=== PATIENT | female | born 1940 | race Caucasian/White ===

== ENCOUNTER 2018-01-23 23:00 | Emergency (ER) | payer MEDICARE ==
[~2018-01-23] VITALS: Ht 165.1 cm; Wt 90.7 kg
[~2018-01-23 23:00] MED LIST: ASPI-1169 PO; ATOR10TA PO; FURO10VI IV; METO25TA20 PO
--- NOTE | 2018-01-23 23:00 | NUR ---
PT TO ED DT NOSE BLEEDING SINCE 2199. VSS NAD. WILL CONTINUE TO MONITOR. NOSE CLAMPED
--- NOTE | 2018-01-23 23:01 | NUR ---
ER MD EL AT BEDSIDE
[2018-01-23] MEDS ORDERED: LIDOCAINE 4% PF AMPUL 40 MG/ML AMPUL ONE (23:25)
[2018-01-23] MEDS ORDERED: OXYMETAZOLINE HCL NASAL SPRAY 30 ML BOTTLE NS ONE ×2 (23:25→23:30)
[2018-01-23] MEDS ORDERED: LET SOLN TOPICAL 8 ML UDC TP ONE ×2 (23:29→23:30)
[2018-01-23] MEDS ORDERED: LIDOCAINE SOLN 4% 50 ML BOTTLE TP ONE (23:30)
[2018-01-23] MEDS ORDERED: SILVER NITRATE APPLICATOR 1 EA BOX TOP ONE (23:30)
--- NOTE | 2018-01-23 23:35 | NUR ---
ER MD EL AT BEDSIDE TO CONTROL EPISTAXIS
[2018-01-23] MEDS ORDERED: SILVER NITRATE APPLICATOR 1 EA BOX ONE (23:37)
--- NOTE | 2018-01-24 00:33 | NUR ---
Patient discharged to home in stable condition. Written and verbal after care instructions given. Patient verbalizes understanding of instruction AND RX. PT AMBULATED OUT WITH A STEADY GAIT. VSS. NAD NOTED. NO ACTIVE BLEEDING NOTED.
[2018-01-24 00:35] VITALS: BP 144/70
== END 2018-01-24 00:36 | disposition home or self-care (01) ==
LOC: ER 23:02
DX: R04.0 Epistaxis (principal); J45.909 Unspecified asthma, uncomplicated; I10 Essential (primary) hypertension; Z88.0 Allergy status to penicillin; Z95.4 Presence of other heart-valve replacement; Z79.82 Long term (current) use of aspirin
CPT/HCPCS: 30901; 99284; A4606; J3490; Z7610

== ENCOUNTER 2018-03-06 13:54 | Emergency (ER) | payer MEDICARE ==
[~2018-03-06] VITALS: Ht 165.1 cm; Wt 90.7 kg
[2018-03-06 14:02] VITALS: BP 112/73
--- NOTE | 2018-03-06 15:19 | NUR ---
CALLED JOSE TO EXPEDITE READ OF X-RAY
== END 2018-03-06 15:20 | disposition home or self-care (01) ==
LOC: ER 13:59
DX: S80.12XA Contusion of left lower leg, initial encounter (principal); I10 Essential (primary) hypertension; J45.909 Unspecified asthma, uncomplicated; Z95.4 Presence of other heart-valve replacement; Z79.82 Long term (current) use of aspirin; Z79.899 Other long term (current) drug therapy; Z88.0 Allergy status to penicillin; W01.198A Fall on same level from slipping, tripping and stumbling with subsequent striking against other object, initial encounter; Y93.89 Activity, other specified; Y92.818 Other transport vehicle as the place of occurrence of the external cause; Y99.8 Other external cause status
CPT/HCPCS: 73590-TC; A4606; Z7610

== ENCOUNTER 2018-04-05 15:13 | Emergency (ER) | payer MEDICARE ==
[~2018-04-05] VITALS: Ht 165.1 cm; Wt 95.3 kg
--- NOTE | 2018-04-05 15:20 | NUR ---
ABDOMINAL PAIN X 4 DAYS,DENIES NAUSEA/VOMITING /DIARRHEA, LAST BM THIS AM, NAD NOTED, VSS, RESP EVEN AND UNLABORED, PT WAS PUT ON MONITOR. WAITING FOR MD.
[2018-04-05 15:47] LABS: BASOPHILS # (AUTO) 0.1 /CMM (0.0-0.2); BASOPHILS % (AUTO) 1.3 % (0.0-2.0); EOSINOPHILS % (AUTO) 3.6 % (0.0-6.0); HEMATOCRIT 41 % (33-45); HEMOGLOBIN 13.8 g/dL (11.5-14.8); LYMPHOCYTES # (AUTO) 1.2 /CMM (0.8-4.8); LYMPHOCYTES % (AUTO) 22.8 % (20.0-44.0); MEAN CORPUSCULAR HEMOGLOBIN 29 PG (26.0-33.0); MEAN CORPUSCULAR HGB CONC 33 g/dl (31.0-36.0); MEAN CORPUSCULAR VOLUME 86 fL (82-100); MONOCYTES # (AUTO) 0.6 /CMM (0.1-1.30); MONOCYTES % (AUTO) 10.8 % (2.0-12.0); NEUTROPHILS # (AUTO) 3.1 /CMM (1.8-8.9); NEUTROPHILS % (AUTO) 61.5 % (43.0-81.0); PLATELET COUNT (AUTO) 164 /CMM (150-450); RDW COEFFICIENT OF VARIATION 13.8 (11.5-15.0); WHITE BLOOD COUNT (AUTO) 5.2 K/uL (4.3-11.0)
[2018-04-05 16:00] LABS: APPEARANCE,URINE Clear (CLEAR); BILIRUBIN,URINE Negative (NEGATIVE); BLOOD, URINE Negative Ery/uL (NEGATIVE); COLOR,URINE Yellow (YELLOW); KETONES,URINE Negative (NEGATIVE); LEUKOCYTE ESTERASE ,URINE Trace (NEGATIVE); NITRITE, URINE Negative (NEGATIVE); PROTEIN,URINE Negative (NEGATIVE); UGLUCOSE Negative (NEGATIVE); UROBILINOGEN,URINE 0.2 EU/dL (0.2)
[2018-04-05 16:05] LABS: CALCIUM, SERUM 9.1 mg/dL (8.5-10.1); CARBON DIOXIDE 28 mmol/L (21-32); CHLORIDE 99 mmol/L (98-107); CREATININE 0.6 mg/dL (0.6-1.3); GLUCOSE 111 mg/dL (74-106); POTASSIUM 4.2 mmol/L (3.5-5.1); SODIUM SERUM 132 mmol/L (136-145); UREA NITROGEN, BLOOD 11 mg/dL (7-18)
[2018-04-05 16:10] LABS: ALANINE AMINOTRANSFERASE 25 U/L (12-78); ALKALINE PHOSPHATASE 83 U/L (46-116); ASPARTATE AMINOTRANSFERASE 23 U/L (15-37); BILIRUBIN,DIRECT 0.2 mg/dL (0.0-0.2); BILIRUBIN,TOTAL 0.9 mg/dL (0.2-1.0); LIPASE 164 U/L (73-393); TOTAL PROTEIN, SERUM 7.7 g/dL (6.4-8.2)
[2018-04-05 16:14] LABS: BACTERIA,URINE Moderate /HPF (None Seen); RBC,URINE 0-2 /HPF (0-2); SQUAMOUS EPITHELIAL CELL,UR Few /HPF (None Seen)
[2018-04-05] MEDS ORDERED: LEVOFLOXACIN (500MG) 500 MG TABLET PO ONE (17:00)
[2018-04-05] MEDS ORDERED: HYDROCODONE/APAP 5/325MG 1 EACH TABLET PO ONE (17:00)
--- NOTE | 2018-04-05 17:18 | NUR ---
Patient discharged to home in stable condition. Written and verbal after care instructions given. Patient verbalizes understanding of instruction.
[2018-04-05 17:19] VITALS: BP 148/83
== END 2018-04-05 17:22 | disposition home or self-care (01) ==
LOC: ER 15:19
DX: N39.0 Urinary tract infection, site not specified (principal); I10 Essential (primary) hypertension; J45.909 Unspecified asthma, uncomplicated; Z95.2 Presence of prosthetic heart valve; Z88.0 Allergy status to penicillin; Z79.82 Long term (current) use of aspirin; Z79.899 Other long term (current) drug therapy
CPT/HCPCS: 36415; 74176; 80048; 80076; 81001; 83690; 85025; 87077; 87086; 87186; 99285; A4606; 81000-TC; Z7610

== ENCOUNTER 2018-09-04 20:05 | Emergency (ER) | payer MEDICARE ==
[~2018-09-04] VITALS: Ht 157.5 cm; Wt 90.7 kg
[2018-09-04 20:20] VITALS: BP 154/75
[2018-09-04] MEDS ORDERED: OXYMETAZOLINE HCL NASAL SPRAY 30 ML BOTTLE NS ONE ×2 (20:54→21:00)
== END 2018-09-04 20:52 | disposition home or self-care (01) ==
LOC: ER 20:11
DX: R04.0 Epistaxis (principal); I10 Essential (primary) hypertension; J45.909 Unspecified asthma, uncomplicated; Z95.2 Presence of prosthetic heart valve; Z88.0 Allergy status to penicillin; Z79.82 Long term (current) use of aspirin; V49.9XXA Car occupant (driver) (passenger) injured in unspecified traffic accident, initial encounter; Y93.89 Activity, other specified; Y92.410 Unspecified street and highway as the place of occurrence of the external cause; Y99.8 Other external cause status
CPT/HCPCS: 99281; A4606; Z7502

== ENCOUNTER 2019-07-04 11:55 | Emergency (ER) | payer MEDICARE ==
[~2019-07-04] VITALS: Ht 165.1 cm; Wt 99.8 kg
--- NOTE | 2019-07-04 12:05 | NUR ---
MAGAN FROM HOME C/O NOSEBLEEDING X3 DAYS. PATIENT A/OX4, BREATHING EVEN AND UNLABORED, NO SOB NOTED, NEEDS ATTENDED. WILL CONTINUE TO MONITOR. NOSE CLIP PROVIDED.
[2019-07-04] MEDS ORDERED: PHENYLEPHRINE 0.5% NASAL SPRAY 15 ML BOTTLE NS ONE (12:20)
[2019-07-04] MEDS ORDERED: PHENYLEPHRINE 1% NASAL SPRAY 15 ML BOTTLE NS PRN (12:30)
[2019-07-04 12:56] VITALS: BP 168/88
--- NOTE | 2019-07-04 12:56 | NUR ---
NOSEBLEED STOPPED. Patient discharged to home in stable condition. Written and verbal after care instructions given. Patient verbalizes understanding of instruction.
== END 2019-07-04 12:57 | disposition home or self-care (01) ==
LOC: ER 12:00
DX: R04.0 Epistaxis (principal); I10 Essential (primary) hypertension; J45.909 Unspecified asthma, uncomplicated; Z98.890 Other specified postprocedural states; Z88.0 Allergy status to penicillin; Z79.899 Other long term (current) drug therapy; Z79.82 Long term (current) use of aspirin

== ENCOUNTER 2019-10-13 18:26 | Emergency (ER) | payer MEDICARE ==
[~2019-10-13] VITALS: Ht 165.1 cm; Wt 109.8 kg
--- NOTE | 2019-10-13 19:05 | NUR ---
CALLED RT FOR BREATHING TX
--- NOTE | 2019-10-13 19:10 | NUR ---
PT CAME INTO THE ED C/O COUGH W/ CONGESTION X 1 WEEK AND WORSENING SOBX TODAY. PT AAOX4, SATTING AT 90% ON RA. ON O2 2 LITERS VIA NC SAT 96%. PT CONNECTED TO THE PERIANESTHESIA NURSE AND POX.
--- NOTE | 2019-10-13 19:17 | NUR ---
BLOOD COLLECTED AND SENT TO LAB
[2019-10-13 19:20] LABS: BASOPHILS # (AUTO) 0.1 /CMM (0.0-0.2); BASOPHILS % (AUTO) 1.3 % (0.0-2.0); EOSINOPHILS % (AUTO) 2.6 % (0.0-6.0); HEMATOCRIT 42 % (33-45); LYMPHOCYTES # (AUTO) 1.2 /CMM (0.8-4.8); LYMPHOCYTES % (AUTO) 21.1 % (20.0-44.0); MEAN CORPUSCULAR HGB CONC 33 g/dl (31.0-36.0); MEAN CORPUSCULAR VOLUME 89 fL (82-100); MONOCYTES # (AUTO) 0.7 /CMM (0.1-1.30); MONOCYTES % (AUTO) 11.7 % (2.0-12.0); NEUTROPHILS # (AUTO) 3.7 /CMM (1.8-8.9); NEUTROPHILS % (AUTO) 63.3 % (43.0-81.0); PLATELET COUNT (AUTO) 202 /CMM (150-450); RED BLOOD CELL COUNT(AUTO) 4.72 MIL/uL (4.0-5.2); WHITE BLOOD COUNT (AUTO) 5.9 K/uL (4.3-11.0)
[2019-10-13] MEDS ORDERED: IPRATROPIUM NEB FS 0.5 MG/2.5 ML AMPUL.NEB NEB ONE (19:30)
[2019-10-13] MEDS ORDERED: ALBUTEROL FS 2.5 MG/3 ML VIAL.NEB NEB ONE (19:30)
[2019-10-13] MEDS ORDERED: IPRATROPIUM NEB FS 0.5 MG/2.5 ML AMPUL.NEB ONE (19:33)
[2019-10-13] MEDS ORDERED: ALBUTEROL FS 2.5 MG/3 ML VIAL.NEB ONE (19:33)
--- NOTE | 2019-10-13 19:37 | NUR ---
RT AT BEDSIDE
[2019-10-13 19:39] LABS: CALCIUM, SERUM 8.9 mg/dL (8.5-10.1); CREATININE 0.9 mg/dL (0.6-1.3)
--- NOTE | 2019-10-13 20:45 | NUR ---
IV removed. Catheter intact and site benign. Pressure and 4x4 applied to site. No bleeding noted.Patient discharged to home in stable condition. Written and verbal after care instructions given. Patient verbalizes understanding of instruction.
[2019-10-13 20:55] VITALS: BP 140/93
== END 2019-10-13 20:56 | disposition home or self-care (01) ==
LOC: ER 18:27
DX: J40 Bronchitis, not specified as acute or chronic (principal); I10 Essential (primary) hypertension; E66.01 Morbid (severe) obesity due to excess calories; Z68.41 Body mass index [BMI] 40.0-44.9, adult; Z98.890 Other specified postprocedural states; Z88.0 Allergy status to penicillin; Z79.899 Other long term (current) drug therapy; Z79.82 Long term (current) use of aspirin
CPT/HCPCS: 36415; 71045-TC; 80048-TC; 83880; 85025-TC

== ENCOUNTER 2020-12-09 17:40 | Inpatient (IN) | payer MEDICARE, OTHER ==
[~2020-12-09] VITALS: Ht 165.1 cm; Wt 104.3 kg
[2020-12-09] MEDS ORDERED: POTA10CA43 PO (18:31)
[2020-12-09] MEDS ORDERED: RIVA10TA PO (18:31)
[2020-12-09] MEDS ORDERED: LOSA25TA27 PO (18:31)
[2020-12-09] MEDS ORDERED: FURO40TA5 PO (18:31)
[2020-12-09] MEDS ORDERED: CARV6.252 PO (18:31)
[2020-12-09] MEDS ORDERED: ATOR10TA PO (18:31)
[2020-12-09 18:34] LABS: BASOPHILS # (AUTO) 0.1 /CMM (0.0-0.2); EOSINOPHILS % (AUTO) 1.9 % (0.0-6.0); LYMPHOCYTES # (AUTO) 0.6 /CMM (0.8-4.8); LYMPHOCYTES % (AUTO) 9.8 % (20.0-44.0); MEAN CORPUSCULAR HGB CONC 31 g/dl (31.0-36.0); MEAN CORPUSCULAR VOLUME 95 fL (82-100); MONOCYTES # (AUTO) 0.6 /CMM (0.1-1.30); MONOCYTES % (AUTO) 9.7 % (2.0-12.0); NEUTROPHILS # (AUTO) 4.9 /CMM (1.8-8.9); NEUTROPHILS % (AUTO) 77.6 % (43.0-81.0); PLATELET COUNT (AUTO) 164 /CMM (150-450); WHITE BLOOD COUNT (AUTO) 6.3 K/uL (4.3-11.0)
--- NOTE | 2020-12-09 18:39 | NUR ---
COVID SWAB DONE AND SENT TO THE LAB
[2020-12-09 18:44] LABS: CALCIUM, SERUM 7.4 mg/dL (8.5-10.1); POTASSIUM 4.5 mmol/L (3.5-5.1); RED BLOOD CELL COUNT(AUTO) 1.86 MIL/uL (4.0-5.2)
[2020-12-09 18:46] LABS: HEMATOCRIT 18 % (33-45); HEMOGLOBIN 5.5 g/dL (11.5-14.8)
[2020-12-09 18:57] LABS: ALBUMIN 2.8 g/dL (3.4-5.0); BILIRUBIN,DIRECT 0.2 mg/dL (0.0-0.2); BILIRUBIN,TOTAL 0.5 mg/dL (0.2-1.0); TOTAL PROTEIN, SERUM 6.1 g/dL (6.4-8.2)
--- NOTE | 2020-12-09 19:13 | NUR ---
US AT BEDSIDE FOR DUPLEX
--- NOTE | 2020-12-09 19:22 | NUR ---
TOOK OVER PT CARE. PT ON 3L NC, SAT 100%. VITALS STABLE. AWARE OF PLAN OF CARE. STATES SHE LIVES WITH HER FAMILY. ABLE TO AMBULATE ON HER OWN AT HOME BUT NOT LATELY DUE TO HER BEING WEAK.
--- NOTE | 2020-12-09 19:44 | NUR ---
CALL FROM LAB. RAPID COVID NEGATIVE.
[2020-12-09 20:05] LABS: EOSINOPHILS % (MANUAL) 2 % (0-4); LYMPHOCYTES % (MANUAL) 15 % (16-48); MONOCYTES % (MANUAL) 4 % (0-11.0); NEUTROPHILS % (MANUAL) 79 (42-76)
--- NOTE | 2020-12-09 20:10 | NUR ---
BLOOD CONSENT OBTAINED FROM PT AND CAIN HOLT.
--- NOTE | 2020-12-09 20:42 | NUR ---
PT REQUESTED FOR THE LIGHTS TO BE TURNED OFF. VSS. REMAINS ON COMMERCIAL ACCOUNTANT AND PULSE OX.
[2020-12-09] MEDS ORDERED: HYDROCODONE/APAP 5/325MG TABLET PO PRN (21:00)
[2020-12-09] MEDS ORDERED: MAG HYDROX/AL HYDROX/SIMETH 30 ML UDC PO PRN (21:00)
[2020-12-09] MEDS ORDERED: ZOLPIDEM TARTRATE 5 MG TABLET PO PRN (21:00)
[2020-12-09] MEDS ORDERED: ONDANSETRON HCL/PF 4 MG/2 ML VIAL IVP PRN (21:00)
[2020-12-09] MEDS ORDERED: MAGNESIUM HYDROXIDE 30 ML UDC PO PRN (21:00)
[2020-12-09] MEDS ORDERED: Z GUARD REMEDY 2 OZ OINT TP PRN (21:00)
--- NOTE | 2020-12-09 21:20 | NUR ---
BLOOD TRANSFUSION STARTED. 2RNS AT BEDSIDE.
--- NOTE | 2020-12-09 21:27 | NUR ---
REPORT GIVEN TO NORY PIMENTEL FOR ANABELA
--- NOTE | 2020-12-09 21:34 | NUR ---
PT TRANSFERED PER ACLS PROTOCOL
--- NOTE | 2020-12-09 21:50 | NUR ---
QUALITY ASSURANCE QA LAB ANALYST RCD PT FROM ER W/DX ANEMIA, GI BLEED. PT IS A/O x4 ABLE TO MAKE NEEDS KNOWN. AFIB ON MONITOR. ON O2 3L VIA NC. SKIN INTACT. PT NPO. PENDING CONSULT W/DR MEJIA. HG 5.5 W/ORDER TO TRANSFUSE 3 UNITS PRBC.
[2020-12-09 21:51] VITALS: BP 124/39
[2020-12-09 22:00] VITALS: BP 108/58
[2020-12-09] MEDS: PANTOPRAZOLE 40 MG VIAL IV SCH (22:08)
--- NOTE | 2020-12-09 22:10 | NUR ---
TANK PROCESSOR INSERTED SPARKS CATHETER; PT TOLERATED WELL
[2020-12-09 22:30] VITALS: BP 102/60
[2020-12-09 23:00] VITALS: BP 109/69
[2020-12-09 23:30] VITALS: BP 92/56
--- NOTE | 2020-12-09 23:55 | NUR ---
CLIENT MANAGER LARGE LAW FIRST UNIT OF PRBC TRANSFUSED. PT TOLERATED WELL.
[2020-12-10] VITALS (34 sets, daily range): BP systolic 80–129; BP diastolic 33–92
--- NOTE | 2020-12-10 00:10 | NUR ---
DROP WIRE BUILDER PT SEEN BY DR PRADO WITH ORDERS TO GIVE LASIX POST FIRST UNIT PRBC AND CHECK LABS POST SEOCND UNIT PRBC.
[2020-12-10] MEDS ORDERED: FUROSEMIDE 20 MG/2 ML VIAL IV ONE (00:30)
--- NOTE | 2020-12-10 02:59 | NUR ---
GANG SUPERVISOR PIPE LINES PT IN BED HOB 40 DEGREES IN SUPINE POSITION DOES NOT WANT TO BE TURNED OR REPOSITIONED.
--- NOTE | 2020-12-10 03:53 | NUR ---
LEAD PAINTER SECOND UNIT OFPRBC TRANSFUSED. PT TOLERATED WELL.
[2020-12-10 05:05] LABS: BASOPHILS % (AUTO) 0.6 % (0.0-2.0); EOSINOPHILS % (AUTO) 3.5 % (0.0-6.0); HEMATOCRIT 22 % (33-45); HEMOGLOBIN 7.1 g/dL (11.5-14.8); LYMPHOCYTES # (AUTO) 0.7 /CMM (0.8-4.8); LYMPHOCYTES % (AUTO) 15.2 % (20.0-44.0); MEAN CORPUSCULAR HGB CONC 33 g/dl (31.0-36.0); MEAN CORPUSCULAR VOLUME 93 fL (82-100); MONOCYTES # (AUTO) 0.6 /CMM (0.1-1.30); MONOCYTES % (AUTO) 11.6 % (2.0-12.0); NEUTROPHILS # (AUTO) 3.4 /CMM (1.8-8.9); NEUTROPHILS % (AUTO) 69.1 % (43.0-81.0); PLATELET COUNT (AUTO) 130 /CMM (150-450); RED BLOOD CELL COUNT(AUTO) 2.36 MIL/uL (4.0-5.2); WHITE BLOOD COUNT (AUTO) 4.9 K/uL (4.3-11.0)
[2020-12-10 05:24] LABS: ALBUMIN 2.5 g/dL (3.4-5.0); BILIRUBIN,DIRECT 0.2 mg/dL (0.0-0.2); BILIRUBIN,TOTAL 0.5 mg/dL (0.2-1.0); CALCIUM, SERUM 7.5 mg/dL (8.5-10.1); CREATININE 0.8 mg/dL (0.6-1.3); MAGNESIUM 2.1 mg/dL (1.8-2.4); PHOSPHORUS 5.4 mg/dL (2.5-4.9); POTASSIUM 4.5 mmol/L (3.5-5.1); TOTAL PROTEIN, SERUM 5.6 g/dL (6.4-8.2)
[2020-12-10 05:36] LABS: THYROID STIMULATING HORMONE 1.859 uIU/mL (0.358-3.74)
--- NOTE | 2020-12-10 07:10 | NUR ---
VOTATOR MACHINE OPERATOR BEDSIDE REPORT TAKEN FROM [facility] NURSE NORY PIMENTEL. PT AWAKE, ALERT AND RESTING COMFORTABLE IN BED. PT AAO X3, PT ON 3L N/C TOLERATING WELL LUNG SOUNDS DIMINISHED. PT MOVES BUE 5/5 AND BLE 4/5 STRENGTH. PT NPO, BOWEL SOUNDS PRESENT. PT HAS SPARKS INTACT AND DRAINING MELISSA COLOR URINE. PT HAS +3 EDEMA IN BLE, SKIN INTACT. VITALS STABLE. WILL CONTINUE TO MONITOR.
--- NOTE | 2020-12-10 08:50 | NUR ---
CITY DETECTIVE DR SALCEDO AT BEDSIDE ASSESSING PT AND UPDATED ON PT STATUS. NO NEW ORDERS AT THIS TIME.
[2020-12-10] MEDS ORDERED: FUROSEMIDE 40 MG/4 ML VIAL IV SCH ×2 (09:00)
[2020-12-10] MEDS: LOSARTAN POTASSIUM 25 MG TABLET PO SCH (09:00)
[2020-12-10] MEDS: CARVEDILOL 6.25 MG TABLET PO SCH ×2 (09:00→16:44)
--- NOTE | 2020-12-10 09:40 | NUR ---
YIELD ENGINEER NOTIFIED DR GARNETT THAT PT SBP 83-95 AND HR 70S, OK TO HOLD COREG AND LOSARTAN PER MD. CHARGE NURSE LEIGH PIMENTEL AWARE.
[2020-12-10] MEDS: PANTOPRAZOLE 40 MG VIAL IV SCH ×2 (09:48→21:12)
[2020-12-10] MEDS: ATORVASTATIN 10 MG TABLET PO SCH (09:49)
[2020-12-10] MEDS: FUROSEMIDE 40 MG/4 ML VIAL IV SCH ×3 (13:46→21:12)
[2020-12-10] MEDS ORDERED: ANESTHESIA TRAY IN PYXIS 1 EA TRAY MC ONE (14:53)
--- NOTE | 2020-12-10 17:53 | NUR ---
SENIOR DATA ARCHITECT GI TEAM AT BEDSIDE TALKING TO PT ABOUT EGD PROCEDURE. PT TAKEN TO GI LAB FOR CONSENT AND PROCEDURE. PT AWAKE, ALERT AND ORIENTED. VITALS STABLE. NO SIGNS OF ACUTE DISTRESS AT THIS TIME.
[2020-12-10] MEDS ORDERED: MIDAZOLAM HCL 2 MG/2ML VIAL ONE (18:06)
--- NOTE | 2020-12-10 19:26 | NUR ---
ICEBOX WORKER PT RETURNED FROM EGD PROCEDURE. BEDSIDE REPORT GIVEN TO [facility] NURSE DIANNE PIMENTEL. PT AWAKE, ALERT AND RESTING COMFORTABLE IN BED. PT AAO X3, PT ON 3L N/C TOLERATING WELL. VITALS STABLE. SAFETY MEASURES IN PLACE. NO SIGNS OF ACUTE DISTRESS AT THIS TIME.
--- NOTE | 2020-12-10 20:00 | NUR ---
Received report patient resting in bed in no acute distress awake alert and oriented x3. VS stable.Afib controlled per tele monitoring.Respiration even and unlabored.With O2 3L NC SPO2 98%.Patient verbalized she is hungry demanding food and water.Per LOREN Olvera from PACU patient can have regular diet.Offered ice chips,sandwich and jello.Well tolerated no nausea or vomiting noted.FC to gravity draining clear yellow urine.Turned and repositioned.Safety precaution implemented.Call light at bedside within easy reach.
--- NOTE | 2020-12-10 22:00 | NUR ---
Patient extremely demanding.All needs met.Encouraged to relax and rest.
[2020-12-11] VITALS (20 sets, daily range): BP systolic 83–122; BP diastolic 22–65
--- NOTE | 2020-12-11 | NUR ---
Patient sleeping at this time.VS remain stable.Safety precaution maintain.
[2020-12-11 04:27] LABS: BASOPHILS % (AUTO) 0.3 % (0.0-2.0); EOSINOPHILS % (AUTO) 2.2 % (0.0-6.0); HEMATOCRIT 23 % (33-45); HEMOGLOBIN 7.4 g/dL (11.5-14.8); LYMPHOCYTES # (AUTO) 0.5 /CMM (0.8-4.8); LYMPHOCYTES % (AUTO) 9.5 % (20.0-44.0); MEAN CORPUSCULAR HGB CONC 32 g/dl (31.0-36.0); MEAN CORPUSCULAR VOLUME 93 fL (82-100); MONOCYTES # (AUTO) 0.6 /CMM (0.1-1.30); MONOCYTES % (AUTO) 11.3 % (2.0-12.0); NEUTROPHILS # (AUTO) 4.1 /CMM (1.8-8.9); NEUTROPHILS % (AUTO) 76.7 % (43.0-81.0); PLATELET COUNT (AUTO) 125 /CMM (150-450); RED BLOOD CELL COUNT(AUTO) 2.49 MIL/uL (4.0-5.2); WHITE BLOOD COUNT (AUTO) 5.4 K/uL (4.3-11.0)
[2020-12-11 04:51] LABS: ALBUMIN 2.6 g/dL (3.4-5.0); BILIRUBIN,TOTAL 0.4 mg/dL (0.2-1.0); CALCIUM, SERUM 7.6 mg/dL (8.5-10.1); CREATININE 0.8 mg/dL (0.6-1.3); MAGNESIUM 1.9 mg/dL (1.8-2.4); PHOSPHORUS 6.6 mg/dL (2.5-4.9); TOTAL PROTEIN, SERUM 5.9 g/dL (6.4-8.2)
--- NOTE | 2020-12-11 06:30 | NUR ---
Patient resting.VS remains stable.Remains Afib controlled Denies pain ,sob, nausea or vomiting.Tolerating po intake.Moderate urine output.No BM noted.Bed bath rendered. All linens changed.Verbalized comfort.Encouraged to turn to sides.No bleeding noted.
--- NOTE | 2020-12-11 08:00 | NUR ---
OPENING NOTE: PT ALERT OX4, DEMANDING, IMPATIENT. PT ABLE TO REPOSITION SELF IN BED. EATING BREAKFAST WITHOUT DIFFICULTY. PT ASKED FOR APPLE JUICE, NONE ON UNIT, KITCHEN NOTIFIED, PT INFORMED THAT DIETARY WILL BRING APPLE JUICE UP SOON POSSIBLE. PT ON 3L NC. CHRONIC A-FIB. SKIN INTACT. TRANSFER TO [facility], NO BED AVAILABLE AT THIS TIME. PT CHECKED ON HOURLY AND PRN BY NURSING STAFF.
--- NOTE | 2020-12-11 08:30 | NUR ---
APPLE JUICE ON UNIT. 2 JUICE CONTAINERS GIVEN TO PATIENT. GOWN CHANGED AND TOP SHEETS AND BLANKETS, PT SPILLED BREAKFAST ON HER GOWN AND BLANKETS. PT'S CONTACT LENSES IN OPEN CONTAINER IN BED. RN VERIFIED THAT 2 CONTACTS WERE IN CONTAINER, SHOWED TO PATIENT, LID PUT ON CONTAINER. CONTAINER PUT ON BEDSIDE TABLE. CALL LIGHT WITHIN REACH.
[2020-12-11] MEDS ORDERED: FUROSEMIDE 40 MG/4 ML VIAL IV SCH (09:00)
--- NOTE | 2020-12-11 09:00 | NUR ---
CLARIFIED LASIX ORDER WITH DR GARNETT. ORDER IS TO BE LASIX 40MG X1 IV THIS AM.
[2020-12-11] MEDS: ATORVASTATIN 10 MG TABLET PO SCH (09:24)
[2020-12-11] MEDS: PANTOPRAZOLE 40 MG VIAL IV SCH ×2 (09:26→22:52)
[2020-12-11] MEDS: CARVEDILOL 6.25 MG TABLET PO SCH ×2 (09:26→16:34)
[2020-12-11] MEDS: LOSARTAN POTASSIUM 25 MG TABLET PO SCH (09:26)
--- NOTE | 2020-12-11 13:17 | NUR ---
REPORT GIVEN TO LIBAN RN FOR TRANSFER TO ROOM 310-1. PT INFORMED OF TRANSFER
--- NOTE | 2020-12-11 13:37 | NUR ---
PT TRANSFERRED VIA BED ON MONITOR WITH 3L O2 PER NASAL CANNULA. 2 RNS TRANSPORTED PT WITH ALL BELONGINGS INCLUDING CLOTHES, CELL PHONE AND DENTURE CUP WITH PATIENTS CONTACT LENSES IN THEM, LABELED SUCH, A BAG, SHOES AND ALL OTHER PERSONAL BELONGINGS. PT SETTLED IN ROOM, HAND OFF TO LIBAN RN DONE.
--- NOTE | 2020-12-11 14:07 | NUR ---
ms rn received a new transfer from icu, female, 80 year old w/ dx of anemia, awake,alert,oriented s3-4, sleeping most of the time.deneis pain at this time, bilateral iv at both ac,olson to gravity bag w/ yellowish/orange output, jackson momjoanie denies pain at this time, all needs attended ,will monitor patient's condition,all needs attended.
[2020-12-11] MEDS: SOD FERRIC GLUC 125 MG in IV NS 0.9% 100 ML IV SCH (14:28)
--- NOTE | 2020-12-11 17:00 | NUR ---
ms rn due meds given,tolerated well.
--- NOTE | 2020-12-11 18:21 | NUR ---
ms rn on bed,no distress noted.
--- NOTE | 2020-12-11 20:44 | NUR ---
MS/TELE/RN PATIENT IS SLEEPING EASILY AROUSABLE, APPEAR COMFORTABLE, NO SIGNS OF DISTRESS NOTED, CALL LIGHT IN REACH, WILL MONITOR.
[2020-12-12] VITALS: BP 115/57
--- NOTE | 2020-12-12 04:11 | NUR ---
MS/TELE/RN PATIENT WAS MOVED TO [facility] PER DAUGHTER'S REQUEST LAST NIGHT.
[2020-12-12] MEDS: ACETAMINOPHEN 325 MG TABLET PO PRN (05:11)
[2020-12-12 06:40] LABS: BASOPHILS % (AUTO) 0.3 % (0.0-2.0); EOSINOPHILS % (AUTO) 2.1 % (0.0-6.0); HEMATOCRIT 25 % (33-45); HEMOGLOBIN 7.8 g/dL (11.5-14.8); LYMPHOCYTES # (AUTO) 0.7 /CMM (0.8-4.8); LYMPHOCYTES % (AUTO) 12.4 % (20.0-44.0); MEAN CORPUSCULAR HGB CONC 32 g/dl (31.0-36.0); MEAN CORPUSCULAR VOLUME 93 fL (82-100); MONOCYTES # (AUTO) 0.6 /CMM (0.1-1.30); MONOCYTES % (AUTO) 10.1 % (2.0-12.0); NEUTROPHILS # (AUTO) 4.5 /CMM (1.8-8.9); NEUTROPHILS % (AUTO) 75.1 % (43.0-81.0); PLATELET COUNT (AUTO) 125 /CMM (150-450); RED BLOOD CELL COUNT(AUTO) 2.63 MIL/uL (4.0-5.2)
[2020-12-12 07:11] LABS: CALCIUM, SERUM 8.3 mg/dL (8.5-10.1); CREATININE 0.8 mg/dL (0.6-1.3); MAGNESIUM 2.2 mg/dL (1.8-2.4); POTASSIUM 4.3 mmol/L (3.5-5.1)
[2020-12-12 08:00] VITALS: BP 108/49
--- NOTE | 2020-12-12 08:00 | NUR ---
MS LOREN OPENING NOTE RECEIVED PATIENT LYING IN BED, RESTING, EASY TO AROUSE. A/O X4. PATIENT STATES 05/25 PAIN - WILL ADMINISTER PAIN MEDICATION. PATIENT ON 2 LITERS 02 VIA NASAL CANNULA - TOLERATING WELL. NO SOB NOTED. SPARKS INTACT - DRAINING TO GRAVITY. IV ACCESS TO RAC AND LAC - INTACT. SAFETY PRECAUTIONS IMPLEMENTED, BED LOCKED AND IN LOWEST POSITION, SIDE RAILS X2. CALL LIGHT WITHIN REACH. WILL CONTINUE TO MONITOR. Addendum: 12/13/20 at 0716 by ABDI PALOMARES RN MISTYPE - PATIENT A/O X1-2, LETHARGIC BUT KNOWS NAME AND WHERE SHE WAS
[2020-12-12] MEDS: LOSARTAN POTASSIUM 25 MG TABLET PO SCH (09:00)
[2020-12-12] MEDS: PANTOPRAZOLE 40 MG VIAL IV SCH ×2 (09:22→21:42)
[2020-12-12] MEDS: ATORVASTATIN 10 MG TABLET PO SCH (09:23)
[2020-12-12] MEDS: CARVEDILOL 12.5 MG TABLET PO SCH ×2 (09:26→17:00)
--- NOTE | 2020-12-12 09:30 | NUR ---
MS RN NOTE DID NOT ADMINISTER COZAAR DUE TO DECREASED BP - 108/49
[2020-12-12 10:27] LABS: ABG BASE EXCESS 13.6 mmol/L; ABG OXYGEN SATURATION 85.7 % (92.0-98.5); ABG PCO2 71.3 mmHg (35.0-45.0); ABG PH 7.374 (7.350-7.450); ABG PO2 51.1 mmHg (75.0-100.0); AaDO2 64.4 mmHg; COHb 1.2 % (0.5-1.5); MetHb 0.3 % (0.0-1.5); O2Hb 84.4 % (94.0-97.0); SITE, ABG Left Radial; VENT MODE, BG NASAL CANNULA
[2020-12-12] MEDS: IPRATROPIUM NEB FS 0.5 MG/2.5 ML AMPUL.NEB NEB SCH ×4 (11:10→20:04)
[2020-12-12 12:00] VITALS: BP 96/55
[2020-12-12] MEDS: SOD FERRIC GLUC 125 MG in IV NS 0.9% 100 ML IV SCH (13:49)
--- NOTE | 2020-12-12 14:00 | NUR ---
TICKET AGENT NOTE PATIENT O2 SAT @ 61-65. REPEAT STAT ABG ORDERED. PATIENT IS CONSTANTLY REMOVING NASAL CANNULA AND REBREATHER MASK.
[2020-12-12 14:10] LABS: ABG BASE EXCESS 13.8 mmol/L; ABG OXYGEN SATURATION 64.6 % (92.0-98.5); ABG PCO2 66.8 mmHg (35.0-45.0); ABG PO2 32.9 mmHg (75.0-100.0); COHb 1.6 % (0.5-1.5); O2Hb 63.6 % (94.0-97.0); SITE, ABG Right Radial; VENT MODE, BG Nasal Cannula
--- NOTE | 2020-12-12 14:22 | NUR ---
RT NOTE: PATIENT WAS FOUND WITH LOW SP02. INCREASED OXYGEN TO 6LPM VIA NASAL CANNULA. ABG DONE AND REPORTED TO DR. GARZA. PER PATIENT PLACED ON VENTI MASK 35% AT 9LPM AND WILL MAINTAIN SP02>90%. AT THIS TIME PATIENT'S SP02=94%. NURSE AND CHARGE NURSE AWARE.
--- NOTE | 2020-12-12 14:25 | NUR ---
SKATE SHOP ATTENDANT NOTE ABG RESULTS REPORTED TO DR GARZA. PER DR GARZA - PATIENT PLACED ON VENTURI MASK 35% AT 9LPM AND WILL MAINTAIN SP02>90%. IF SP02<90%, SEND TO ICU PER DR. GARZA. AT THIS TIME PATIENT'S SP02=94%. WILL CONTINUE TO MONITOR.
[2020-12-12 16:00] VITALS: BP 123/59
--- NOTE | 2020-12-12 16:45 | NUR ---
LIFE SCIENCE TAXONOMIST NOTE PATIENT PLACED ON SOFT WRIST RESTRAINT TO RIGHT WRIST. PATIENT IS CONSTANTLY REMOVING VENTURI MASK.
--- NOTE | 2020-12-12 17:18 | NUR ---
MS RN NOTE PATIENT TOO DISORIENTED TO TAKE MEDICATION. ATTEMPTED TO PLACE MEDICATION IN MOUTH, SHE SPIT IT OUT. BLOOD PRESSURE IS 123/59.
--- NOTE | 2020-12-12 18:45 | NUR ---
MS RN CLOSING NOTE PATIENT CURRENTLY LYING IN BED, RESTING, EASY TO AROUSE. A/O X1-2. LETHARGIC. PATIENT ON VENTURI MASK 35% @ 9LPM - SATURATION 90-93%. BILATERAL SOFT WRIST RESTRAINTS APPLIED - PATIENT WAS CONSTANTLY PULLING OFF OXYGEN MASK. SPARKS INTACT - DRAINING TO GRAVITY. IV ACCESS TO RIGHT FOREARM - INTACT AND PATENT - SALINE LOCKED. SAFETY PRECAUTIONS IMPLEMENTED, BED LOCKED AND IN LOWEST POSITION, SIDE RAILS X2. CALL LIGHT WITHIN REACH. WILL ENDORSE TO GRADE TEACHER NURSE FOR ANABELA.
--- NOTE | 2020-12-12 19:40 | NUR ---
TELE/RN OPENING NOTE RECEIVED PATIENT RESTING IN BED. ALERT AND ORIENTED TO NAME ONLY. RESTLESS AT THIS TIME. RESTRAINTS TO BILATERAL WRISTS NOTED WITH POSITIVE CIRCULATION. PATIENT CONTINUES ON VENTURI MASK 35% @ 9L O2. O2 SATS FLUCTUATING BETWEEN 89-92%. IV ACCESS TO RIGHT WRIST INTACT AND PATENT. CONTINUES ON TELE MONITOR. CALL LIGHT WITHIN REACH. ASPIRATION, FALL AND SAFETY PRECAUTIONS MAINTAINED. WILL CONTINUE TO MONITOR.
[2020-12-12 20:00] VITALS: BP 113/58
--- NOTE | 2020-12-12 22:09 | NUR ---
FOOD AND BEVERAGE OUTLETS MANAGER NOTE PATIENT WITH DECREASED O2 SATS BETWEEN 84-88% ON VENTURI MASK 35% @ 9L. PATIENT CONTINUES WITH RESTLESSNESS. CONTINUES WITH BILATERAL WRIST RESTRAINTS. DR. GARZA NOTIFIED WITH NEW ORDERS FOR ABG AND ICU TRANSFER. ORDERS INPUTTED AND CARRIED OUT. WILL NOTIFY DR. GARZA OF ABG RESULTS. PATIENT WILL BE TRANSFERRED TO ICU BED 253.
[2020-12-12 22:40] LABS: ABG BASE EXCESS 15.5 mmol/L; ABG OXYGEN SATURATION 93.1 % (92.0-98.5); ABG PCO2 70.3 mmHg (35.0-45.0); ABG PH 7.399 (7.350-7.450); ABG PO2 70.7 mmHg (75.0-100.0); AaDO2 60.6 mmHg; COHb 1.3 % (0.5-1.5); MetHb 0.5 % (0.0-1.5); O2Hb 91.4 % (94.0-97.0); SITE, ABG Right Radial; VENT MODE, BG VENTI MASK 30%
--- NOTE | 2020-12-12 23:26 | NUR ---
GROWTH MEDIA MIXER MUSHROOM NOTE PT TRANSFERRED TO ICU FROM [facility], PT CONFUSED, ORIENTED TO SELF. NO RESP DISTRESS NOTED. ON VENTURI MASK 9L 35 %, O2 SAT AT 98%. CONNECTED TO TELE MONITOR, SHOWS AFIB CONTROLLED WITH HR OF 83. NO SIGNS OF PAIN. WITH BILATERAL WRIST RESTRAINTS, GOOD CIRCULATION. IV ON RFA AND LFA BOTH PATENT AND INTACT, FLUSHES WELL. SPARKS IN PLACE, DRAINING BY GRAVITY WITH DARK YELLOW URINE OUTPUT. ALL SAFETY MEASURES IMPLEMENTED PER PROTOCOL, BED LOCKED IN LOWEST POSITION. SIDE RAILS UP X 2. KEPT COMFORTABLE IN BED. WILL CONTINUE TO MONITOR. BP 135/86, R 19, T 97.6, HR 83.
--- NOTE | 2020-12-12 23:29 | NUR ---
TELE/PHOTO INTERN NOTE PATIENT TRANSFERRED TO ICU BED 253. REPORT GIVEN TO DELVIN FOR CONTINUITY OF CARE. SPOKE WITH DAUGHTER SOURAV AND INFORMED OF ICU TRANSFER WITH FAMILY IN AGREEMENT.
[2020-12-13] VITALS (24 sets, daily range): BP systolic 82–145; BP diastolic 29–96
[2020-12-13] MEDS: IPRATROPIUM NEB FS 0.5 MG/2.5 ML AMPUL.NEB NEB SCH ×4 (01:24→19:30)
--- NOTE | 2020-12-13 03:52 | NUR ---
RN NOTE PT RESTLESS, YELLING OUT. UNABLE TO SAY NEEDS. KEPT COMFORTABLE. VS STABLE. NO RESP DISTRESS NOTED. WILL CONTINUE TO MONITOR.
[2020-12-13 04:16] LABS: BASOPHILS % (AUTO) 0.2 % (0.0-2.0); HEMATOCRIT 24 % (33-45); HEMOGLOBIN 7.6 g/dL (11.5-14.8); LYMPHOCYTES # (AUTO) 0.6 /CMM (0.8-4.8); LYMPHOCYTES % (AUTO) 11.6 % (20.0-44.0); MEAN CORPUSCULAR HGB CONC 31 g/dl (31.0-36.0); MEAN CORPUSCULAR VOLUME 93 fL (82-100); MONOCYTES # (AUTO) 0.5 /CMM (0.1-1.30); MONOCYTES % (AUTO) 10.2 % (2.0-12.0); NEUTROPHILS # (AUTO) 3.7 /CMM (1.8-8.9); PLATELET COUNT (AUTO) 128 /CMM (150-450); RED BLOOD CELL COUNT(AUTO) 2.63 MIL/uL (4.0-5.2)
[2020-12-13] MEDS ORDERED: LORAZEPAM INJ 2 MG/ML VIAL IV ONE (04:30)
[2020-12-13 04:34] LABS: CALCIUM, SERUM 8.4 mg/dL (8.5-10.1); CREATININE 0.6 mg/dL (0.6-1.3)
--- NOTE | 2020-12-13 04:39 | NUR ---
RN NOTE NOTIFIED ADVERTISING ASSISTANT MANAGER DOUGLAS CHILDRESS REGARDING PT CONFUSION AND AGITATION/YELLING OUT. ALSO NOTIFIED RE PT NOT DRINKING ANY LIQUIDS, OFFERED MULTIPLE TIMES AND NOT ON ANY IV FLUIDS. MOLD MAKER PLASTIC MOLDS ORDERED TO GIVE ATIVAN 0.5MG IV X 1, ORDER NOTED AND CARRIED OUT.
--- NOTE | 2020-12-13 05:30 | NUR ---
RN NOTE PT CALM NOW, SLEEPING, AROUSES EASILY. NO RESP DISTRESS NOTED.
--- NOTE | 2020-12-13 05:55 | NUR ---
RN NOTE EKG DONE BY RT, SHOWS AFIB. NO SIGNIFICANT CHANGES.
--- NOTE | 2020-12-13 06:53 | NUR ---
RN NOTE SPOKE TO PTS EBONIE GALLEGO WANTED TO TRANSFER PT TO [facility]. CHARGE NURSE MADE AWARE. WILL ENDORSE TO NEXT SHIFT NURSE.
--- NOTE | 2020-12-13 06:59 | NUR ---
RN NOTE PT SLEEPING WELL, MOVES TO LOCALIZED PAIN. NO RESP DISTRESS NOTED. ON O2 VIA VENTURI MASK 6L 30%. O2 SAT AT 94 %. NO SIGNS OF PAIN NOTED. VS STABLE. IV LINES REMAIN PATENT AND INTACT. RESTRAINTS ON, NO SKIN BREAKDOWN NOTED WITH GOOD CIRCULATION. SPARKS CATH DRAINING WELL. KEPT CLEAN AND DRY. ALL SAFETY MEASURES MAINTAINED. WILL ENDORSE TO NEXT SHIFT NURSE FOR ANABELA.
--- NOTE | 2020-12-13 07:15 | NUR ---
RN INITIAL NOTES RECEIVED PT ASLEEP, MOANS ON TACTILE STIMULI. MOVES TO PAIN. DOES NOT FOLLOW COMMANDS AT THIS TIME. PT ON VENTURI MASK. HOB ELEVATED. NO SOB NOTED. SPARKS IN PLACE. NO HEMATURIA NOTED. WILL CLOSELY MONITOR
[2020-12-13] MEDS: PANTOPRAZOLE 40 MG VIAL IV SCH ×2 (08:53→20:29)
[2020-12-13] MEDS: LOSARTAN POTASSIUM 25 MG TABLET PO SCH (08:54)
[2020-12-13] MEDS: CARVEDILOL 12.5 MG TABLET PO SCH ×2 (08:54→17:15)
[2020-12-13] MEDS: ATORVASTATIN 10 MG TABLET PO SCH (08:54)
[2020-12-13 11:26] LABS: ABG BASE EXCESS 16.1 mmol/L; ABG OXYGEN SATURATION 98.5 % (92.0-98.5); ABG PCO2 77.8 mmHg (35.0-45.0); ABG PH 7.368 (7.350-7.450); ABG PO2 136.5 mmHg (75.0-100.0); COHb 1.3 % (0.5-1.5); MetHb 0.6 % (0.0-1.5); O2Hb 96.6 % (94.0-97.0); SITE, ABG Right Radial; VENT MODE, BG N/C
[2020-12-13] MEDS: FUROSEMIDE 40 MG/4 ML VIAL IV SCH ×2 (13:36→18:46)
[2020-12-13] MEDS: SOD FERRIC GLUC 125 MG in IV NS 0.9% 100 ML IV SCH (14:43)
--- NOTE | 2020-12-13 18:57 | NUR ---
RN CLOSING NOTES PT A/OX1-2, WITH PERIODS OF CONFUSION. ON 02 VIA NC. NO SOB. NO SIGNS OF PAIN NOTED. KEPT CLEAN AND DRY. SPARKS IN PLACE. KEPT COMFORTABLE. WILL ENDORSE FOR CONTINUITY OF CARE.
--- NOTE | 2020-12-13 19:27 | NUR ---
COMMUNITY CENTER COORDINATOR OPENING NOTES: Rec'd pt in bed A&Ox1-2 w/ episodes of confusion. On 1LPM NC tolerating well. No SOB noted at this time. A-fib controlled on tele monitor. RFA #20 and LFA #20 patent and flushed. Ferrell catheter in place patent and draining urine via gravity. Safety measures in place. Will continue to monitor.
--- NOTE | 2020-12-13 19:33 | NUR ---
CATERPILLAR OPERATOR NOTE: Pt noted to be agitated, refusing BP cuff. Yelling "no" when nurse or other staff approach door to room. Will continue to monitor.
--- NOTE | 2020-12-13 20:03 | NUR ---
CIVIL PREPAREDNESS TRAINING OFFICER NOTE: Pt's son at bedside. Addendum: 12/13/20 at 2004 by JUSTIN MCGRAW RN Pt continuing to refuse BP cuff, lead change and temp check. Will attempt again at later time.
--- NOTE | 2020-12-13 22:36 | NUR ---
WEBBING SUPERVISOR NOTE: Pt very agitated, pulling leads off, yelling out. Unable to calm down. Paged director of curriculum and instruction Saray Goss and updated on pt's condition. Gave order for Hall IM x1. Noted and carried out. Addendum: 12/13/20 at 2246 by JUSTIN MCGRAW RN Also rec'd order for psych consult. Order placed, face sheet faxed to [facility]
[2020-12-13] MEDS ORDERED: HALOPERIDOL LACTATE INJ 5 MG/ML VIAL IM ONE (23:00)
[2020-12-14] VITALS (26 sets, daily range): BP systolic 59–173; BP diastolic 34–116
[2020-12-14] MEDS: IPRATROPIUM NEB FS 0.5 MG/2.5 ML AMPUL.NEB NEB SCH ×4 (01:30→19:24)
--- NOTE | 2020-12-14 01:44 | NUR ---
Pt refused scheduled hhn txs throughout shift. Pt yelling "No!" No resp distress/SOB noted. Will cont to monitor.
[2020-12-14] MEDS: ACETAMINOPHEN 325 MG TABLET PO PRN ×2 (04:37→11:00)
--- NOTE | 2020-12-14 04:43 | NUR ---
ENGINE TEST CELL TECHNICIAN NOTE: Pt c/o of 3/10 generalized body pain. Tylenol PRN given as ordered. Will continue to monitor.
[2020-12-14 04:46] LABS: BASOPHILS % (AUTO) 0.5 % (0.0-2.0); EOSINOPHILS % (AUTO) 4.8 % (0.0-6.0); HEMATOCRIT 25 % (33-45); HEMOGLOBIN 7.8 g/dL (11.5-14.8); LYMPHOCYTES # (AUTO) 0.6 /CMM (0.8-4.8); LYMPHOCYTES % (AUTO) 10.4 % (20.0-44.0); MEAN CORPUSCULAR HGB CONC 32 g/dl (31.0-36.0); MEAN CORPUSCULAR VOLUME 91 fL (82-100); MONOCYTES # (AUTO) 0.6 /CMM (0.1-1.30); MONOCYTES % (AUTO) 10.6 % (2.0-12.0); NEUTROPHILS # (AUTO) 4.1 /CMM (1.8-8.9); NEUTROPHILS % (AUTO) 73.7 % (43.0-81.0); PLATELET COUNT (AUTO) 142 /CMM (150-450); RED BLOOD CELL COUNT(AUTO) 2.73 MIL/uL (4.0-5.2); WHITE BLOOD COUNT (AUTO) 5.6 K/uL (4.3-11.0)
[2020-12-14 04:48] LABS: CALCIUM, SERUM 8.1 mg/dL (8.5-10.1); CREATININE 0.7 mg/dL (0.6-1.3); POTASSIUM 3.5 mmol/L (3.5-5.1)
--- NOTE | 2020-12-14 05:15 | NUR ---
MAINTENANCE SHOP LABORER NOTE: Pt screaming and agitated. Unable to calm down. Paged concrete saw operator Saray oshea/ order for Rafael x1. Noted and carried out.
[2020-12-14] MEDS ORDERED: HALOPERIDOL LACTATE INJ 5 MG/ML VIAL IM ONE (05:30)
--- NOTE | 2020-12-14 07:15 | NUR ---
GROUNDS CLEANER NOTES RECEIVED PATIENT AOX2-3 DROWSY , NOT IN ACUTE DISTRESS , RESPIRATIONS EVEN AND UNLABORED WITH SPO2 OF 92% VIA 1LPM NC , AFIB 75 ON BEDSIDE MONITOR , FC DRAINING VIA GRAVITY , RFA # 20 AND LFA # 20 PATENT AND INTACT SL , ALL NEEDS ATTENDED , WILL CONTINUE TO MONITOR ,
[2020-12-14] MEDS: LOSARTAN POTASSIUM 25 MG TABLET PO SCH (08:03)
[2020-12-14] MEDS: CARVEDILOL 12.5 MG TABLET PO SCH (08:03)
[2020-12-14] MEDS: PANTOPRAZOLE 40 MG VIAL IV SCH ×2 (08:03→21:03)
[2020-12-14] MEDS: ATORVASTATIN 10 MG TABLET PO SCH (08:03)
--- NOTE | 2020-12-14 09:00 | NUR ---
TRAY SETTER NOTES SEEN AND EVALUATED BY DR SALCEDO , PT DROWSY , AOX2-3 , HALDOL IM GIVEN @ 2247 AND 0520 , VSS STABLE AFEBRILE, DISCUSSED LABS AND CHEST XRAY, AWARE .
--- NOTE | 2020-12-14 10:06 | NUR ---
PROVIDER RELATIONS MANAGER NOTES RECEIVED A CALL FROM DR GARNETT , DISCUSSED CURRENT BP , COREG 12.5MG AND COZAAR 25MG GIVEN @ 0800 WITH SBP ABOVE 110'S , PER MD GIRALDO BOTH , ORDER CARRIED OUT
[2020-12-14] MEDS: SOD FERRIC GLUC 125 MG in IV NS 0.9% 100 ML IV SCH (13:59)
--- NOTE | 2020-12-14 14:40 | NUR ---
VIDEOTAPE OPERATOR NOTES TRANSFERRED PT TO RADIOLOGY DEPRARTMENT VIA ACLS PROTOCOL , NO ACUTE EVENTS NOTED , PT STABLE AT THIS TIME , WILL CONTINUE TO MONITOR,
--- NOTE | 2020-12-14 14:57 | NUR ---
BRAKE TESTER NOTES PT STABLE S/P CT OF THE HEAD WITHOUT CONTRAST , NO ACUTE EVENTS NOTED , VSS STABLE
--- NOTE | 2020-12-14 15:31 | NUR ---
WIRE STRANDER NOTES BETHANY INSPECTOR BICYCLE TALKING TO THE DAUGHTER FOR TRANSFER REQUEST TO [facility] .
--- NOTE | 2020-12-14 15:56 | NUR ---
FLOWER CUTTER NOTES PT REFUSED BEDSIDE MONITOR LEADS AT THIS TIME DAUGHTER AT BEDSIDE , EXPLAINED THE BENEFITS OF HAVING CONTINUOUS TELE MONITOR AND RISK OF REMOVING IT WE CON TINIOUSLY MONITOR HER HR AND RHYTHM IN THE ICU , PT AND DAUGHTER VERBALIZED UNDERSTANDING AND STILL WANTS THE LEDS AND TELE MONITOR TO BE REMOVED FOR A WHILE
--- NOTE | 2020-12-14 19:35 | NUR ---
CLINICAL OPERATIONS MANAGER OPENING NOTES: Rec'd pt in bed A&Ox3. On 1LPM NC tolerating well. No SOB noted at this time. A-fib controlled on tele monitor. Right wrist #20 and LFA #20 patent and flushed. Ferrell catheter in place patent and draining urine via gravity. No pain reported at this time. Safety measures in place. Will continue to monitor.
--- NOTE | 2020-12-14 21:34 | NUR ---
SILK SCREEN LAYOUT DRAFTER NOTE: Psych MD in unit to consult on pt. Pt currently asleep. Dr said he will come back tomorrow. Will endorse.
[2020-12-15] VITALS (21 sets, daily range): BP systolic 83–150; BP diastolic 34–78
[2020-12-15] MEDS: IPRATROPIUM NEB FS 0.5 MG/2.5 ML AMPUL.NEB NEB SCH ×4 (01:05→19:16)
[2020-12-15 05:12] LABS: BASOPHILS % (AUTO) 0.4 % (0.0-2.0); EOSINOPHILS % (AUTO) 4.5 % (0.0-6.0); HEMATOCRIT 24 % (33-45); HEMOGLOBIN 7.4 g/dL (11.5-14.8); LYMPHOCYTES # (AUTO) 0.6 /CMM (0.8-4.8); LYMPHOCYTES % (AUTO) 10.9 % (20.0-44.0); MEAN CORPUSCULAR HGB CONC 31 g/dl (31.0-36.0); MEAN CORPUSCULAR VOLUME 92 fL (82-100); MONOCYTES # (AUTO) 0.5 /CMM (0.1-1.30); MONOCYTES % (AUTO) 8.9 % (2.0-12.0); NEUTROPHILS # (AUTO) 3.9 /CMM (1.8-8.9); NEUTROPHILS % (AUTO) 75.3 % (43.0-81.0); PLATELET COUNT (AUTO) 135 /CMM (150-450); WHITE BLOOD COUNT (AUTO) 5.2 K/uL (4.3-11.0)
[2020-12-15 05:32] LABS: CALCIUM, SERUM 8.1 mg/dL (8.5-10.1); CREATININE 0.6 mg/dL (0.6-1.3); PHOSPHORUS 3.3 mg/dL (2.5-4.9); POTASSIUM 3.6 mmol/L (3.5-5.1)
--- NOTE | 2020-12-15 07:09 | NUR ---
PENS AND PENCILS DIPPER NOTES RECEIVED PATIENT AOX3 , NOT IN ACUTE DISTRESS , RESPIRATIONS EVEN AND UNLABORED WITH SPO2 OF 998% VIA 1LPM NC , AFIB 85 ON BEDSIDE MONITOR , FC DRAINING VIA GRAVITY , RWRIST # 20 AND LFA # 20 PATENT AND INTACT SL , ALL NEEDS ATTENDED , WILL CONTINUE TO MONITOR , PATIENT REMOVED BP CUFF , EXPLAINED THAT SHE NEEDS HER BP TO BE MONITORED , EXPLAINED THE RISK OF NOT MONITORING HER BP FREQUENTLY , PT VERBALIZED UNDERSTANDING STILL REFUSES BP CUFF TO BE PLACED .
[2020-12-15] MEDS ORDERED: FUROSEMIDE 20 MG/2 ML VIAL IV ONE (08:00)
[2020-12-15] MEDS: PANTOPRAZOLE 40 MG VIAL IV SCH ×2 (08:34→20:27)
--- NOTE | 2020-12-15 13:19 | NUR ---
SEISMOGRAPH CHIEF NOTES TITRATED OXYGEN FROM 1LPM TO RA @ 1200 , SPO2 OF 90-95% WITH NO DISTRESS NOTED WILL CONTINUE TO MONITOR @ 1300 PLACED BACK O2 @ 1LPM NC, SPO2 OF 90% NO DISTRESS NOTED WILL CONTINUE TO MONITOR .
[2020-12-15] MEDS: SOD FERRIC GLUC 125 MG in IV NS 0.9% 100 ML IV SCH (13:59)
[2020-12-15] MEDS: ACETAMINOPHEN 325 MG TABLET PO PRN (14:31)
[2020-12-15] MEDS ORDERED: BISACODYL SUPP (10 MG) 10 MG/SUPP.RECT SUPP.RECT RC PRN (15:00)
--- NOTE | 2020-12-15 17:04 | NUR ---
WOOD MACHINIST NOTES RECEIVED A CALL FROM [place] ( [facility]) [phone] NOTIFIED THAT PT IS A TELE STATUS ALREADY , THEY WILL TRY TO GET A ROOM TOMORROW AM , NOTIFIED ANJANA ELDER REGARDING THE INFORMATION , PER ANJANA SHE WILL ARRANGE THE AMBULANCE WILL CALL .
--- NOTE | 2020-12-15 18:10 | NUR ---
INSTRUCTIONS FOR NURSE WHEN FAMILY CALL FOR CREDIT CARD INFORMATION TO PAY FOR LATERAL TRANSPORTATION TO [facility] [place] When family calls with credit card information please conference call [facility] company to arrange ALS transportation. 1. Call Kelsi at [phone] 2. Tell them you want to arrange an ALS lateral transport from [facility] to [facility] in [place] due to family request. 3. Provide dispatch HT and WT of patient along with demographics on face sheet. 4. If no bed yet from [facility], tell then it will be a "will call" 5. IF A BED IS RECEIVED FROM [facility], Call [facility] and tell them you want to "activate" a transport for this patient and provide them with a bed number. 6. IF A BED IS RECEIVED FROM FROM [facility], Call [facility] and inform them of ETA. Addendum: 12/15/20 at 1811 by DENNIS SHER RN Amended: Links added.
--- NOTE | 2020-12-15 18:16 | NUR ---
COMPUTER NUMERICAL CONTROL GRINDER NOTES TRANSFERRED PT TO TELE FLOOR VIA ACLS PROTOCOL , VSS NO ACUTE EVENS NOTED , AOX3 , SPO2 OF 98% VIA 1LPM NC , AFIB 85 ON BEDSIDE MONITOR , FC IN PLACE , R WRSIT @ 20 AND LFA #20 PATENT AND INTACT SL . ALL NEEDS ATTENDED , WILL CONTINUE TO MONITOR
--- NOTE | 2020-12-15 18:28 | NUR ---
INK TECHNICIAN NOTES NOTIFIED RADHA THAT PT IS TRANSFERED TO TELE FLOOR ROOM 112-1
--- NOTE | 2020-12-15 19:47 | NUR ---
RN NOTE PATIENT SITTING IN CHAIR, ALERT AND ORIENTED X3. ON O2 1L VIA NASAL CANNULA, O2 SAT 95%. NO SOB OR ANY RESPIRATORY DISTRESS. TELE MONITOR ON, HR 80'S. DENIES ANY PAIN OR DISCOMFORT. WITH SPARKS CATHETER PATENT AND INTACT. DRAINING YELLOW URINE TO GRAVITY. WITH RIGHT WRIST #20 AND LEFT FOREARM #20 FLUSHED WITH NS ASEPTICALLY. BED LOCKED AND IN LOWEST POSITION. CALL LIGHT WITHIN REACH. WILL CONTINUE TO MONITOR.
--- NOTE | 2020-12-15 22:30 | NUR ---
SPOKE WITH [facility] THIS TIME AND RETRIEVED CREDIT CARD INFO FOR TRANSPORTATION. CALLED [facility] ([phone]) AND SPOKE TO YANETH AND PUT PATIENT DOWN "WILL CALL" (TRANSPO #[id number]). UNTIL BED IS AVAILABLE AT [facility]. WILL WAIT FOR CALL FROM [facility].
[2020-12-16] VITALS: BP 140/60
--- NOTE | 2020-12-16 01:00 | NUR ---
JINNY FROM [facility] CALLED AT THIS TIME WITH BED AVAILABILITY TO ROOM 5218 @ 8AM (TELEMETRY) PH: . ADDRESS: [address] [place] [address], [facility]. CALLED [facility] AND SPOKE TO YANETH TO ACTIVATE TRANSPORTATION WITH [employer]PER[employer] TIME @[phone]. CHARGE NURSE LILY KENT. FIOR LOPEZ MADE AWARE. Addendum: 12/16/20 at 0651 by YANCY ROBLERO RN PER FIOR LOPEZ TO ENDORSE TO AM SHIFT REGARDING DISCHARGE ORDER/NOTE. CHARGE NURSE LILY KENT.
[2020-12-16] MEDS: IPRATROPIUM NEB FS 0.5 MG/2.5 ML AMPUL.NEB NEB SCH ×2 (01:22→08:02)
[2020-12-16 04:00] VITALS: BP 112/54
[2020-12-16 05:51] LABS: BASOPHILS % (AUTO) 0.4 % (0.0-2.0); EOSINOPHILS % (AUTO) 4.6 % (0.0-6.0); HEMATOCRIT 26 % (33-45); HEMOGLOBIN 8.1 g/dL (11.5-14.8); LYMPHOCYTES # (AUTO) 0.6 /CMM (0.8-4.8); LYMPHOCYTES % (AUTO) 11.2 % (20.0-44.0); MEAN CORPUSCULAR HGB CONC 32 g/dl (31.0-36.0); MEAN CORPUSCULAR VOLUME 92 fL (82-100); MONOCYTES # (AUTO) 0.5 /CMM (0.1-1.30); MONOCYTES % (AUTO) 8.9 % (2.0-12.0); NEUTROPHILS # (AUTO) 3.9 /CMM (1.8-8.9); NEUTROPHILS % (AUTO) 74.9 % (43.0-81.0); PLATELET COUNT (AUTO) 143 /CMM (150-450); WHITE BLOOD COUNT (AUTO) 5.1 K/uL (4.3-11.0)
[2020-12-16 06:21] LABS: CALCIUM, SERUM 8.7 mg/dL (8.5-10.1); CREATININE 0.6 mg/dL (0.6-1.3); PHOSPHORUS 3.5 mg/dL (2.5-4.9); POTASSIUM 3.8 mmol/L (3.5-5.1)
--- NOTE | 2020-12-16 06:51 | NUR ---
RN NOTE PATIENT ALERT AND ORIENTED X3. ON O2 1L VIA NASAL CANNULA, O2 SAT 94%. NO SOB NOTED. TELE MONITOR ON, HR 90'S. WITH SPARKS CATHETER PATENT AND INTACT. DRAINING YELLOW URINE TO GRAVITY OUTPUT 300CC. WITH RIGHT WRIST #20 AND LEFT FOREARM #20 PATENT AND INTACT. ALL NEEDS ATTENDED PROMPTLY. RECEIVED CRITICAL LAB CO2 41, SAME PREVIOUS DAY. NO S/S OF ANY CHANGES. BED LOCKED AND IN LOWEST POSITION. CALL LIGHT WITHIN REACH. WILL ENDORSE TO AM SHIFT.
--- NOTE | 2020-12-16 07:30 | NUR ---
RN OPENING NOTE PATIENT IS CURRENTLY IN BED WITH HOB AT SEMI FOWLERS POSITION. PATIENT IS ON 1L NC WITH NO SIGNS OF LABORED BREATHING. PATIENT IS AOX3. SPARKS IS IN PLACE. RWRIST #20 AND LFA #20 ARE PATENT AND INTACT. BED IS LOCKED IN THE LOWEST POSITION, 3 GUARD RAILS RAISED, CALL JUNG WITHIN REACH, AND ALL HOSPITAL SAFETY PRECAUTIONS ARE BEING FOLLOWED. WILL CONTINUE TO MONITOR THROUGHOUT SHIFT.
[2020-12-16 08:00] VITALS: BP 139/56
[2020-12-16] MEDS: PANTOPRAZOLE 40 MG VIAL IV SCH (08:56)
--- NOTE | 2020-12-16 09:38 | NUR ---
RN NOTE REPORT GIVEN TO [facility]. AWAITING AM[facility]ULANCE [employer].
--- NOTE | 2020-12-16 09:45 | NUR ---
RN NOTE REPORT GIVEN TO EMT FOR TRANSFER. PATIENT IN STABLE CONDITION.
== END 2020-12-16 10:04 | disposition short-term general hospital (02) | DRG 391 ==
LOC: ER 17:44 → ICU 21:04 → TELE 12-11 13:38 → ICU 12-12 23:37 → TELE1 12-15 17:29
PROVIDERS: ADMIT Student in an Organized Health Care Education/Training Program; ATTEND Internal Medicine
PROC: 30233N1 Transfusion of Nonautologous Red Blood Cells into Peripheral Vein, Percutaneous Approach (ICD-10-PCS; principal; 2020-12-09)
PROC: 0DB68ZX Excision of Stomach, Via Natural or Artificial Opening Endoscopic, Diagnostic (ICD-10-PCS; 2020-12-09)
DX: K29.70 Gastritis, unspecified, without bleeding (principal); J96.01 Acute respiratory failure with hypoxia; I50.23 Acute on chronic systolic (congestive) heart failure; G93.41 Metabolic encephalopathy; J96.02 Acute respiratory failure with hypercapnia; E44.0 Moderate protein-calorie malnutrition; D68.59 Other primary thrombophilia; E66.2 Morbid (severe) obesity with alveolar hypoventilation; E87.2 Acidosis; I11.0 Hypertensive heart disease with heart failure; Z20.822 Contact with and (suspected) exposure to COVID-19; I35.0 Nonrheumatic aortic (valve) stenosis; E78.5 Hyperlipidemia, unspecified; J45.909 Unspecified asthma, uncomplicated; I48.91 Unspecified atrial fibrillation; Z88.0 Allergy status to penicillin; Z79.899 Other long term (current) drug therapy; R74.01 Elevation of levels of liver transaminase levels; Z87.891 Personal history of nicotine dependence; Z95.2 Presence of prosthetic heart valve; N28.1 Cyst of kidney, acquired; Z79.01 Long term (current) use of anticoagulants; R04.0 Epistaxis; I25.10 Atherosclerotic heart disease of native coronary artery without angina pectoris; I25.2 Old myocardial infarction; I27.20 Pulmonary hypertension, unspecified; D50.9 Iron deficiency anemia, unspecified; N19 Unspecified kidney failure
CPT/HCPCS: 36415; 36600; 70450-TC; 71045-TC; 80048-TC; 80053-TC; 80061-TC; 80076-TC; 82728-TC; 82803-TC; 83540-TC; 83735-TC; 83880; 84100-TC; 84443-TC; 84484-TC; 85025-TC; 85730-TC; 86850-TC; 87081-TC; 88305-TC; 88312-TC; 88342; 93307-TC; 93970-TC; 94760-TC; 94799-TC; 97112-TC; 97530-TC; C9113; C9803; G0378; J1630; J1940; J2060; J2250; J2916; J3490; J7030; J7050; P9016

== ENCOUNTER 2022-07-01 19:39 | Emergency (ER) | payer MEDICARE, OTHER ==
[~2022-07-01] VITALS: Ht 165.1 cm; Wt 90.7 kg
[~2022-07-01 19:39] MED LIST changes: -ASPI-1169 PO; +CARV6.252 PO; -FURO10VI IV; +FURO40TA5 PO; +LOSA25TA27 PO; -METO25TA20 PO; +POTA10CA43 PO; +RIVA10TA PO
[2022-07-01 20:37] VITALS: BP 121/83
--- NOTE | 2022-07-01 20:58 | NUR ---
[employer] MAINLINE AT PT'S BEDSIDE
[2022-07-01] MEDS ORDERED: TDAP [DIPH/PERTUSSIS/TET] 0.5 ML VIAL IM ONE ×2 (21:28→21:30)
--- NOTE | 2022-07-01 21:32 | NUR ---
Patient discharged to home in stable condition. Written and verbal after care instructions given. Patient verbalizes understanding of instruction. PT ambulatory with a steady gait
== END 2022-07-01 22:05 | disposition home or self-care (01) ==
LOC: ER 20:34
DX: S60.551A Superficial foreign body of right hand, initial encounter (principal); I10 Essential (primary) hypertension; I48.91 Unspecified atrial fibrillation; J45.909 Unspecified asthma, uncomplicated; Z88.0 Allergy status to penicillin; Z79.899 Other long term (current) drug therapy; X58.XXXA Exposure to other specified factors, initial encounter; Y93.89 Activity, other specified; Y92.89 Other specified places as the place of occurrence of the external cause; Y99.8 Other external cause status
CPT/HCPCS: 90715

== ENCOUNTER 2023-07-15 10:30 | Inpatient (IN) | payer MEDICARE, OTHER ==
[~2023-07-15] VITALS: Ht 165.1 cm; Wt 125.2 kg
[2023-07-15 11:10] LABS: BASOPHILS # (AUTO) 0.1 K/uL (0.0-0.2); BASOPHILS % (AUTO) 0.9 % (0.0-2.0); EOSINOPHILS # (AUTO) 0.2 K/uL (0.0-0.7); EOSINOPHILS % (AUTO) 2.6 % (0.0-6.0); HEMATOCRIT 34 % (33-45); HEMOGLOBIN 10.9 g/dL (11.5-14.8); LYMPHOCYTES # (AUTO) 0.6 K/uL (0.8-4.8); MEAN CORPUSCULAR HEMOGLOBIN 30 PG (26.0-33.0); MEAN CORPUSCULAR HGB CONC 32 g/dl (31.0-36.0); MEAN CORPUSCULAR VOLUME 95 fL (82-100); MONOCYTES # (AUTO) 0.6 K/uL (0.1-1.30); MONOCYTES % (AUTO) 10.5 % (2.0-12.0); NEUTROPHILS # (AUTO) 4.4 K/uL (1.8-8.9); PLATELET COUNT (AUTO) 127 K/uL (150-450); RED BLOOD CELL COUNT(AUTO) 3.59 MIL/uL (4.0-5.2); RED CELL DISTRIBUTION WIDTH 18.9 % (11.5-15.0); WHITE BLOOD COUNT (AUTO) 5.8 K/uL (4.3-11.0)
[2023-07-15 11:31] LABS: ALANINE AMINOTRANSFERASE 27 U/L (12-78); ALKALINE PHOSPHATASE 93 U/L (46-116); ASPARTATE AMINOTRANSFERASE 32 U/L (15-37); BILIRUBIN,DIRECT 0.5 mg/dL (0.0-0.2); CALCIUM, SERUM 8.5 mg/dL (8.5-10.1); CHLORIDE 99 mmol/L (98-107); CREATININE 1.4 mg/dL (0.6-1.3); GLUCOSE 128 mg/dL (74-106); NT-PRO BNP 4108 pg/mL (0-125); POTASSIUM 5.3 mmol/L (3.5-5.1); SODIUM SERUM 138 mmol/L (136-145); TOTAL PROTEIN, SERUM 6.9 g/dL (6.4-8.2); UREA NITROGEN, BLOOD 35 mg/dL (7-18)
[2023-07-15 11:33] LABS: CARBON DIOXIDE 40 mmol/L (21-32)
[2023-07-15] MEDS ORDERED: Z GUARD REMEDY 4 OZ OINT TP PRN (14:30)
[2023-07-15] MEDS ORDERED: ONDANSETRON HCL/PF 4 MG/2 ML VIAL IVP PRN (14:30)
[2023-07-15] MEDS ORDERED: BUME2TAB7 PO (14:32)
[2023-07-15] MEDS ORDERED: APIX5TAB PO (14:32)
[2023-07-15] MEDS ORDERED: METO25TA20 PO (14:32)
[2023-07-15] MEDS ORDERED: TRAM50TA2 PO (14:32)
[2023-07-15] MEDS ORDERED: IPRA3AMP23 IH (14:32)
[2023-07-15] MEDS ORDERED: POTA10TA10 PO (14:32)
[2023-07-15] MEDS ORDERED: DOCU-141 PO (14:32)
[2023-07-15] MEDS ORDERED: ALBUTEROL FS 2.5 MG/3 ML VIAL.NEB NEB ONE (15:00)
[2023-07-15 16:00] VITALS: BP 122/65; TEMP 98.5; O2SAT 100
[2023-07-15] MEDS ORDERED: VANCOMYCIN 1.5 GM in IV D5W 500ml IV ONE (16:00)
[2023-07-15 16:09] VITALS: O2SAT 98
[2023-07-15] MEDS ORDERED: DOCUSATE SODIUM 100 MG CAPSULE PO PRN (16:30)
[2023-07-15] MEDS: FUROSEMIDE 40 MG/4 ML VIAL IV SCH (16:53)
[2023-07-15 17:07] LABS: ABG BASE EXCESS 9.7 mmol/L; ABG PCO2 67.3 mmHg (35.0-45.0); ABG PH 7.362 (7.350-7.450); ABG PO2 75.7 mmHg (75.0-100.0); ABG TOTAL HEMOGLOBIN 11.9 G/dL (12.0-16.0); COHb 0.7 % (0.5-1.5); MetHb 0.2 % (0.0-1.5); O2Hb 93.2 % (94.0-97.0); SITE, ABG Right Radial; VENT MODE, BG NASAL CANNULA
[2023-07-15] MEDS: METOPROLOL TARTRATE 25 MG TABLET PO SCH (17:46)
[2023-07-15 20:00] VITALS: BP 119/72; TEMP 97.5; O2SAT 95
[2023-07-16] VITALS (9 sets, daily range): BP systolic 95–115; BP diastolic 59–75; TEMP 97–97.9; O2SAT 18–100
[2023-07-16] MEDS: FUROSEMIDE 40 MG/4 ML VIAL IV SCH (02:08)
[2023-07-16 07:00] LABS: BASOPHILS % (AUTO) 0.6 % (0.0-2.0); EOSINOPHILS # (AUTO) 0.2 K/uL (0.0-0.7); EOSINOPHILS % (AUTO) 2.8 % (0.0-6.0); HEMATOCRIT 33 % (33-45); HEMOGLOBIN 10.5 g/dL (11.5-14.8); LYMPHOCYTES # (AUTO) 0.5 K/uL (0.8-4.8); LYMPHOCYTES % (AUTO) 9.4 % (20.0-44.0); MEAN CORPUSCULAR HEMOGLOBIN 31 PG (26.0-33.0); MEAN CORPUSCULAR HGB CONC 32 g/dl (31.0-36.0); MEAN CORPUSCULAR VOLUME 96 fL (82-100); MONOCYTES # (AUTO) 0.6 K/uL (0.1-1.30); MONOCYTES % (AUTO) 10.6 % (2.0-12.0); NEUTROPHILS # (AUTO) 4.2 K/uL (1.8-8.9); NEUTROPHILS % (AUTO) 76.6 % (43.0-81.0); PLATELET COUNT (AUTO) 118 K/uL (150-450); RED BLOOD CELL COUNT(AUTO) 3.45 MIL/uL (4.0-5.2); RED CELL DISTRIBUTION WIDTH 19.7 % (11.5-15.0); WHITE BLOOD COUNT (AUTO) 5.5 K/uL (4.3-11.0)
[2023-07-16 07:17] LABS: CALCIUM, SERUM 8.3 mg/dL (8.5-10.1); CREATININE 1.2 mg/dL (0.6-1.3); MAGNESIUM 2.6 mg/dL (1.8-2.4); PHOSPHORUS 4.3 mg/dL (2.5-4.9); POTASSIUM 4.3 mmol/L (3.5-5.1)
[2023-07-16 08:28] LABS: ABG BASE EXCESS 6.8 mmol/L; ABG OXYGEN SATURATION 92.2 % (92.0-98.5); ABG PCO2 56.9 mmHg (35.0-45.0); ABG PH 7.385 (7.350-7.450); ABG PO2 69.2 mmHg (75.0-100.0); ABG TOTAL HEMOGLOBIN 11.7 G/dL (12.0-16.0); AaDO2 63.3 mmHg; COHb 0.9 % (0.5-1.5); MetHb 0.3 % (0.0-1.5); O2Hb 91.1 % (94.0-97.0); SITE, ABG Right Radial; VENT MODE, BG 2LPM NC
[2023-07-16] MEDS: PANTOPRAZOLE 40 MG TABLET.DR PO SCH (08:33)
[2023-07-16] MEDS: METOPROLOL TARTRATE 25 MG TABLET PO SCH ×2 (08:34→16:58)
[2023-07-16] MEDS: FUROSEMIDE 100 MG/10 ML VIAL IV SCH ×3 (08:57→16:57)
[2023-07-16] MEDS: IPRATROPIUM NEB FS 0.5 MG/2.5 ML AMPUL.NEB NEB SCH ×2 (15:00→19:57)
[2023-07-16] MEDS: APIXABAN 5 MG TABLET PO SCH (17:00)
[2023-07-16] MEDS: VANCOMYCIN 1 GM in IV D5W 250ml IV SCH (17:08)
[2023-07-16] MEDS: CLOTRIMAZOLE 1% 15 GM TUBE TP SCH (17:36)
[2023-07-17] VITALS (10 sets, daily range): BP systolic 100–119; BP diastolic 64–82; TEMP 96.6–99; O2SAT 93–100
[2023-07-17] MEDS: IPRATROPIUM NEB FS 0.5 MG/2.5 ML AMPUL.NEB NEB SCH ×4 (01:10→20:32)
[2023-07-17 06:45] LABS: BASOPHILS % (AUTO) 0.5 % (0.0-2.0); EOSINOPHILS # (AUTO) 0.2 K/uL (0.0-0.7); EOSINOPHILS % (AUTO) 3.4 % (0.0-6.0); HEMATOCRIT 33 % (33-45); HEMOGLOBIN 10.3 g/dL (11.5-14.8); LYMPHOCYTES # (AUTO) 0.6 K/uL (0.8-4.8); MEAN CORPUSCULAR HEMOGLOBIN 31 PG (26.0-33.0); MEAN CORPUSCULAR HGB CONC 32 g/dl (31.0-36.0); MEAN CORPUSCULAR VOLUME 97 fL (82-100); MONOCYTES # (AUTO) 0.7 K/uL (0.1-1.30); MONOCYTES % (AUTO) 12.7 % (2.0-12.0); NEUTROPHILS # (AUTO) 3.7 K/uL (1.8-8.9); NEUTROPHILS % (AUTO) 71.4 % (43.0-81.0); PLATELET COUNT (AUTO) 113 K/uL (150-450); RED BLOOD CELL COUNT(AUTO) 3.39 MIL/uL (4.0-5.2); RED CELL DISTRIBUTION WIDTH 19.7 % (11.5-15.0); WHITE BLOOD COUNT (AUTO) 5.2 K/uL (4.3-11.0)
[2023-07-17 07:09] LABS: ALANINE AMINOTRANSFERASE 24 U/L (12-78); ALBUMIN 2.8 g/dL (3.4-5.0); ALKALINE PHOSPHATASE 90 U/L (46-116); ASPARTATE AMINOTRANSFERASE 31 U/L (15-37); BILIRUBIN,TOTAL 0.9 mg/dL (0.2-1.0); CALCIUM, SERUM 8.4 mg/dL (8.5-10.1); CARBON DIOXIDE 38 mmol/L (21-32); CHLORIDE 101 mmol/L (98-107); CREATININE 1.2 mg/dL (0.6-1.3); GLUCOSE 91 mg/dL (74-106); MAGNESIUM 2.7 mg/dL (1.8-2.4); PHOSPHORUS 4.6 mg/dL (2.5-4.9); POTASSIUM 4.3 mmol/L (3.5-5.1); SODIUM SERUM 140 mmol/L (136-145); TOTAL PROTEIN, SERUM 6.5 g/dL (6.4-8.2); UREA NITROGEN, BLOOD 32 mg/dL (7-18)
[2023-07-17] MEDS: PANTOPRAZOLE 40 MG TABLET.DR PO SCH (08:31)
[2023-07-17] MEDS: METOPROLOL TARTRATE 25 MG TABLET PO SCH ×2 (08:32→17:15)
[2023-07-17] MEDS: APIXABAN 5 MG TABLET PO SCH ×2 (08:33→17:16)
[2023-07-17] MEDS: CLOTRIMAZOLE 1% 15 GM TUBE TP SCH ×2 (08:34→17:23)
[2023-07-17] MEDS: VANCOMYCIN 1 GM in IV D5W 250ml IV SCH (17:14)
[2023-07-18] VITALS (13 sets, daily range): BP systolic 105–123; BP diastolic 61–69; TEMP 97.6–98.1; O2SAT 89–100
[2023-07-18] MEDS: IPRATROPIUM NEB FS 0.5 MG/2.5 ML AMPUL.NEB NEB SCH ×4 (02:09→20:37)
[2023-07-18 07:37] LABS: BASOPHILS % (AUTO) 0.3 % (0.0-2.0); EOSINOPHILS # (AUTO) 0.2 K/uL (0.0-0.7); EOSINOPHILS % (AUTO) 3.2 % (0.0-6.0); HEMATOCRIT 34 % (33-45); LYMPHOCYTES # (AUTO) 0.6 K/uL (0.8-4.8); LYMPHOCYTES % (AUTO) 10.6 % (20.0-44.0); MEAN CORPUSCULAR HEMOGLOBIN 31 PG (26.0-33.0); MEAN CORPUSCULAR HGB CONC 32 g/dl (31.0-36.0); MEAN CORPUSCULAR VOLUME 96 fL (82-100); MONOCYTES # (AUTO) 0.5 K/uL (0.1-1.30); MONOCYTES % (AUTO) 9.2 % (2.0-12.0); NEUTROPHILS # (AUTO) 4.4 K/uL (1.8-8.9); NEUTROPHILS % (AUTO) 76.7 % (43.0-81.0); PLATELET COUNT (AUTO) 130 K/uL (150-450); RED BLOOD CELL COUNT(AUTO) 3.56 MIL/uL (4.0-5.2); RED CELL DISTRIBUTION WIDTH 19.5 % (11.5-15.0); WHITE BLOOD COUNT (AUTO) 5.8 K/uL (4.3-11.0)
[2023-07-18 08:00] LABS: CALCIUM, SERUM 8.4 mg/dL (8.5-10.1); CREATININE 1.2 mg/dL (0.6-1.3); MAGNESIUM 2.7 mg/dL (1.8-2.4); PHOSPHORUS 3.6 mg/dL (2.5-4.9); POTASSIUM 4.2 mmol/L (3.5-5.1)
[2023-07-18] MEDS: CLOTRIMAZOLE 1% 15 GM TUBE TP SCH ×2 (09:00→17:00)
[2023-07-18] MEDS: PANTOPRAZOLE 40 MG TABLET.DR PO SCH (09:10)
[2023-07-18] MEDS: METOPROLOL TARTRATE 25 MG TABLET PO SCH ×2 (09:14→17:22)
[2023-07-18] MEDS: APIXABAN 5 MG TABLET PO SCH ×2 (09:18→16:54)
[2023-07-18] MEDS: ACETAMINOPHEN 325 MG TABLET PO PRN (11:44)
[2023-07-18] MEDS: VANCOMYCIN 1 GM in IV D5W 250ml IV SCH (16:53)
[2023-07-19] VITALS (11 sets, daily range): BP systolic 126–137; BP diastolic 70–92; TEMP 97.8–98.5; O2SAT 90–99
[2023-07-19] MEDS: IPRATROPIUM NEB FS 0.5 MG/2.5 ML AMPUL.NEB NEB SCH ×4 (01:24→20:54)
[2023-07-19] MEDS: ACETAMINOPHEN 325 MG TABLET PO PRN (02:10)
[2023-07-19 06:27] LABS: BASOPHILS % (AUTO) 0.4 % (0.0-2.0); EOSINOPHILS # (AUTO) 0.2 K/uL (0.0-0.7); EOSINOPHILS % (AUTO) 2.3 % (0.0-6.0); HEMATOCRIT 37 % (33-45); HEMOGLOBIN 11.9 g/dL (11.5-14.8); LYMPHOCYTES # (AUTO) 0.7 K/uL (0.8-4.8); LYMPHOCYTES % (AUTO) 10.5 % (20.0-44.0); MEAN CORPUSCULAR HEMOGLOBIN 31 PG (26.0-33.0); MEAN CORPUSCULAR HGB CONC 32 g/dl (31.0-36.0); MEAN CORPUSCULAR VOLUME 96 fL (82-100); MONOCYTES # (AUTO) 0.5 K/uL (0.1-1.30); NEUTROPHILS # (AUTO) 5.3 K/uL (1.8-8.9); NEUTROPHILS % (AUTO) 78.8 % (43.0-81.0); PLATELET COUNT (AUTO) 128 K/uL (150-450); RED BLOOD CELL COUNT(AUTO) 3.89 MIL/uL (4.0-5.2); RED CELL DISTRIBUTION WIDTH 19.2 % (11.5-15.0); WHITE BLOOD COUNT (AUTO) 6.7 K/uL (4.3-11.0)
[2023-07-19 07:07] LABS: CALCIUM, SERUM 8.7 mg/dL (8.5-10.1); CREATININE 1.1 mg/dL (0.6-1.3); PHOSPHORUS 4.1 mg/dL (2.5-4.9); POTASSIUM 4.9 mmol/L (3.5-5.1)
[2023-07-19 09:54] LABS: ABG BASE EXCESS 9.5 mmol/L; ABG OXYGEN SATURATION 90.8 % (92.0-98.5); ABG PCO2 70.1 mmHg (35.0-45.0); ABG PH 7.347 (7.350-7.450); ABG PO2 69.7 mmHg (75.0-100.0); ABG TOTAL HEMOGLOBIN 12.3 G/dL (12.0-16.0); AaDO2 47.2 mmHg; COHb 1.2 % (0.5-1.5); MetHb 0.3 % (0.0-1.5); O2Hb 89.4 % (94.0-97.0); SITE, ABG Right Radial; VENT MODE, BG N/C 28%
[2023-07-19] MEDS: METOPROLOL TARTRATE 25 MG TABLET PO SCH ×2 (10:04→16:58)
[2023-07-19] MEDS: PANTOPRAZOLE 40 MG TABLET.DR PO SCH (10:04)
[2023-07-19] MEDS: APIXABAN 5 MG TABLET PO SCH ×2 (10:07→16:59)
[2023-07-19] MEDS: CLOTRIMAZOLE 1% 15 GM TUBE TP SCH ×2 (10:07→17:02)
[2023-07-19] MEDS ORDERED: VANCOMYCIN 1.25 GM in IV D5W 250 ML IV SCH (16:00)
[2023-07-20] MEDS: IPRATROPIUM NEB FS 0.5 MG/2.5 ML AMPUL.NEB NEB SCH (01:30)
[2023-07-20] MEDS ORDERED: SODIUM BICARBONATE SYR 50 MEQ/50 ML DISP.SYRIN IV ONE (06:37)
[2023-07-20] MEDS ORDERED: EPINEPHRINE (1:10,000) SYRINGE 1 MG/10 ML DISP.SYRIN IVP ONE (06:37)
[2023-07-20] MEDS ORDERED: CALCIUM CHLORIDE 1,000 MG/10 ML DISP.SYRIN IV ONE (06:37)
[2023-07-20] MEDS ORDERED: Magnesium 1 GM/2 ML VIAL IV ONE (06:37)
[2023-07-20] MEDS ORDERED: DEXTROSE 50%-WATER 50 ML DISP.SYRIN IV ONE (06:37)
[2023-07-20] MEDS ORDERED: AMIODARONE 150 MG/3 ML VIAL IV ONE (06:37)
== END 2023-07-20 06:38 ==
LOC: ER 10:36 → MED 14:00 → TELE 16:05 → MED 07-18 08:18
PROVIDERS: ADMIT Nurse Practitioner Family; ATTEND Nurse Practitioner Family
PROC: 5A09357 Assistance with Respiratory Ventilation, Less than 24 Consecutive Hours, Continuous Positive Airway Pressure (ICD-10-PCS; principal; 2023-07-15)
PROC: 5A12012 Performance of Cardiac Output, Single, Manual (ICD-10-PCS; 2023-07-20)
PROC: 0BH18EZ Insertion of Endotracheal Airway into Trachea, Via Natural or Artificial Opening Endoscopic (ICD-10-PCS; 2023-07-20)
DX: I13.0 Hypertensive heart and chronic kidney disease with heart failure and stage 1 through stage 4 chronic kidney disease, or unspecified chronic kidney disease (principal); I21.A1 Myocardial infarction type 2; I50.43 Acute on chronic combined systolic (congestive) and diastolic (congestive) heart failure; J96.22 Acute and chronic respiratory failure with hypercapnia; J96.21 Acute and chronic respiratory failure with hypoxia; D68.69 Other thrombophilia; E66.2 Morbid (severe) obesity with alveolar hypoventilation; E87.3 Alkalosis; N17.9 Acute kidney failure, unspecified; L03.115 Cellulitis of right lower limb; Z68.42 Body mass index [BMI] 45.0-49.9, adult; E03.9 Hypothyroidism, unspecified; D50.9 Iron deficiency anemia, unspecified; E87.5 Hyperkalemia; I48.91 Unspecified atrial fibrillation; N18.9 Chronic kidney disease, unspecified; R29.6 Repeated falls; Z87.891 Personal history of nicotine dependence; Z95.2 Presence of prosthetic heart valve; W19.XXXA Unspecified fall, initial encounter; I27.20 Pulmonary hypertension, unspecified; Z79.01 Long term (current) use of anticoagulants; Z91.199 Patient's noncompliance with other medical treatment and regimen due to unspecified reason; E16.2 Hypoglycemia, unspecified; S00.03XA Contusion of scalp, initial encounter; S00.12XA Contusion of left eyelid and periocular area, initial encounter; Y93.9 Activity, unspecified; Y92.009 Unspecified place in unspecified non-institutional (private) residence as the place of occurrence of the external cause; J45.909 Unspecified asthma, uncomplicated
CPT/HCPCS: 36415; 36600; 70450-TC; 71045-TC; 71250-TC; 72125-TC; 80048-TC; 80053-TC; 80061-TC; 80076-TC; 80202-TC; 82607-TC; 82728-TC; 82803-TC; 82962-TC; 83540-TC; 83735-TC; 83880; 84100-TC; 84484-TC; 85025-TC; 86140-TC; 87040-TC; 92950-TC; 93971-TC; 94660; 94799-TC; 97112-TC; 97530-TC; A4223; G0378; J0171; J0282; J1940; J3370; J3475; J3490; J7060